=== PATIENT | female | born 1995 | race Caucasian/White ===

== ENCOUNTER 2021-10-28 21:58 | Observation (INO) | payer BC, OTHER ==
--- NOTE | 2021-10-29 00:02 | XR ---
EXAMINATION TYPE: XR KUB DATE OF EXAM: 10/28/2021 COMPARISON: NONE HISTORY: Abdominal pain TECHNIQUE: 2 views upright FINDINGS: Bowel gas pattern is normal. There is no sign of intestinal obstruction or pneumoperitoneum . Fecal pattern is normal. Lung bases are clear. IMPRESSION: Nonacute abdomen.
[2021-10-29] MEDS ORDERED: MORPHINE SULFATE 2 MG/ML SYRINGE IVP STA (01:47)
[2021-10-29] MEDS ORDERED: FAMOTIDINE 20 MG/2 ML VIAL IV STA (01:47)
[2021-10-29] MEDS ORDERED: ONDANSETRON 4 MG/2 ML VIAL IVP STA (01:47)
[2021-10-29] MEDS ORDERED: diphenhydrAMINE 50 MG/ML 1 ML VIAL IVP STA (01:47)
[2021-10-29] MEDS ORDERED: SODIUM CHLORIDE 0.9% 1,000 ML IV STA (01:47)
[2021-10-29] MEDS ORDERED: MORPHINE SULFATE 4 MG/ML SYRINGE IVP STA (02:35)
--- NOTE | 2021-10-29 02:36 | CT ---
EXAMINATION TYPE: CT abdomen pelvis w con DATE OF EXAM: 10/29/2021 COMPARISON: None HISTORY: RIGHT SIDED ABD PAIN CT DLP: 1491.1 mGycm Automated exposure control for dose reduction was used. CONTRAST: Performed with IV Contrast, patient injected with 100 mL of Isovue 300. Images obtained from the diaphragm to the floor the pelvis with IV contrast. Lung bases are clear. There is no pleural effusion. Heart size is normal. There is no pericardial eff usion. Liver spleen stomach pancreas and gallbladder appear normal. The bile ducts are not dilated. There is no adrenal mass. Right kidney shows mild perinephric edema. There is hydronephrosis and imelda yed right pyelogram. There is obstructing 3 mm calculus at the right ureteropelvic junction. The uret ers are not dilated. Bladder distends smoothly. There is no inguinal hernia. Uterus is anteverted. Th ere is no evidence of a pelvic mass. Lumbar vertebrae have normal spacing and alignment. There is no compression fracture. Bony pelvis is intact. The hip joints are intact. Uterus is anteverted. Appendi x is posterior and appears normal. There is no mesenteric edema. There is no ascites or free air. There is no bowel obstruction. IMPRESSION: Obstructing small calculus in the proximal right ureter at the ureteropelvic junction with right-side d hydronephrosis. Normal appendix.
[2021-10-29 02:41] LABS: Basophils # (A) 0.1 k/uL (0-0.2); Basophils % (A) 0 %; Eosinophils % (A) 0 %; HCT 39.2 % (34.0-46.0); HGB 12.9 gm/dL (11.4-16.0); Lymphocytes # (A) 1.7 k/uL (1.0-4.8); Lymphocytes % (A) 9 %; MCH 29.7 pg (25.0-35.0); MCHC 32.8 g/dL (31.0-37.0); MCV 90.4 fL (80.0-100.0); Mean Platelet Volume 8.6; Monocytes # (A) 0.4 k/uL (0-1.0); Monocytes % (A) 2 %; Neutrophils # (A) 16.2 k/uL (1.3-7.7); Neutrophils % (A) 88 %; Platelet Count 230 k/uL (150-450); RBC 4.34 m/uL (3.80-5.40); RDW 12.7 % (11.5-15.5); WBC 18.5 k/uL (3.8-10.6)
[2021-10-29 02:51] LABS: ALT 17 U/L (4-34); African American GFR (CKD) >90 (>60 ml/min/1.73 sqM); Albumin 3.6 g/dL (3.5-5.0); Amylase 61 U/L (30-110); Anion Gap 8 mmol/L; Blood Urea Nitrogen 13 mg/dL (7-17); Calcium 8.2 mg/dL (8.4-10.2); Carbon Dioxide 21 mmol/L (22-30); Chloride 110 mmol/L (98-107); Glucose 102 mg/dL (74-99); Lipase 109 U/L (23-300); Non-African American GFR(CKD) >90 (>60 ml/min/1.73 sqM); Sodium 139 mmol/L (137-145); Total Bilirubin 0.4 mg/dL (0.2-1.3); Total Protein 6.5 g/dL (6.3-8.2)
[2021-10-29 03:13] LABS: Appearance,Urine Clear (Clear); Bilirubin,Urine Negative (Negative); Blood,Urine Negative (Negative); Color,Urine Yellow; Glucose,Urine (UA) Negative (Negative); Ketones,Urine Negative (Negative); Leukocyte Esterase,Urine Negative (Negative); Nitrite,Urine Negative (Negative); PH, Urine 5.5 (5.0-8.0); Protein,Urine Negative (Negative); Specific Gravity,Urine 1.022 (1.001-1.035); Urobilinogen,Urine <2.0 mg/dL (<2.0)
[2021-10-29 03:14] LABS: AST 23 U/L (14-36); Alkaline Phosphatase 58 U/L (38-126)
[2021-10-29] MEDS ORDERED: MORPHINE SULFATE 4 MG/ML SYRINGE IV PRN (04:00)
[2021-10-29] MEDS ORDERED: ONDANSETRON 4 MG/2 ML VIAL IVP PRN (04:00)
[2021-10-29] MEDS ORDERED: SODIUM CHLORIDE 0.9% 1,000 ML IV SCH (04:00)
[2021-10-29] MEDS ORDERED: NALOXONE 0.4 MG/ML 1 ML VIAL IV PRN (04:00)
--- NOTE | 2021-10-29 04:36 | ED ---
General Adult HPI - General Chief complaint: Abdominal Pain Stated complaint: Vomiting Time Seen by Provider: 10/29/21 01:33 Source: patient, RN notes reviewed, old records reviewed Mode of arrival: ambulatory Limitations: no limitations - History of Present Illness Initial comments: Patient is a 26-year-old female with no significant past medical history who presents emergency department over concern for one day history of right-sided abdominal pain, flank. She denies any known history like this previously. Denies . Denies any dysuria, hematuria. Endorses nausea, vomiting. States the pain is severe. It comes and goes. Is uncomfortable to sit or lie down. She is no history of kidney stones but they do run in the family. Patient presents over concern for any intractable abdominal pain with nausea and vomiting. Denies . I evaluated the patient and she was placed in a room. - Related Data Allergies Allergy/AdvReac Type Severity Reaction Status Date / Time No Known Allergies Allergy Verified 10/28/21 22:49 Review of Systems ROS Statement: Those systems with pertinent positive or pertinent negative responses have been documented in the HPI. Review of Systems: CONST: Denies fever EYES: Denies blurry vision ENT: Denies nasal congestion C/V: Denies Chest pain RESP: Denies shortness of breath GI: Endorses abdominal pain, nausea, vomiting : Denies dysuria SKIN: Denies rash. MSK: Denies joint pain. NEURO: Denies headache ROS Other: All systems not noted in ROS Statement are negative. Past Medical History Past Medical History: No Reported History History of Any Multi-Drug Resistant Organisms: None Reported Past Surgical History: No Surgical Hx Reported Past Psychological History: No Psychological Hx Reported Smoking Status: Never smoker Past Alcohol Use History: None Reported Past Drug Use History: None Reported General Exam - General Exam Comments Initial Comments: General: There is a moderate pain. HEAD: Normal with no signs of head trauma. EYES: PERRLA, EOMI, conjunctiva normal, no discharge. ENT: Hearing grossly intact, normal oropharynx. RESPIRATORY: Clear breath sounds bilaterally. No wheezes, rales, or rhonchi. C/V: Regular rate and rhythm. S1 and S2 auscultated, no edema, peripheral pulses 2+ and intact throughout ABD: Abdomen soft, nondistended. Patient is tender over the right flank. No CVA tenderness to percussion. No guarding, rebound tenderness, peritoneal signs. EXT: Normal range of motion, no obvious deformity SKIN: No rashes or lesions observed on exposed skin. NEURO: Alert and oriented 4. Limitations: no limitations Course Vital Signs 10/28/21 10/29/21 22:46 02:13 Temperature 98.3 F 98.1 F Pulse Rate 94 Respiratory 16 Rate Blood Pressure 140/92 O2 Sat by Pulse 99 Oximetry Medical Decision Making - Medical Decision Making Based on patient's presentation and physical exam, I'm concerned for an intra- abdominal process for his current symptoms, including kidney stones. We'll therefore obtain abdominal laboratory studies, test, as well as a CT abdomen and pelvis. She'll be treated with 1 L fluid bolus as well as IV analgesia and antiemetics. Patient was in agreement this plan. Patient's laboratory studies are remarkable for mild leukocytosis of 18.5 which is likely reactive as she has no signs of infection otherwise. Urinalysis is unremarkable. Patient is not . Remainder of the labs are unremarkable. CT abdomen and pelvis revealed a 3 mm nephrolithiasis on the right ureteral pelvic junction with hydronephrosis. On reevaluation, patient is requiring repeat pain medications. She still somewhat nauseous and request repeat antibiotics. I did discuss with her the results of his laboratory studies and imaging. I do believe it is best admitted to the hospital this plan. She was in agreement this plan. Patient will be admitted to observation for pain control and to be evaluated by urology. Dr. Chen of urology was consulted. I spoke with RAJEEV Zamorano of [facility] accepted the admission. Patient was therefore admitted in stable condition to Dr. Carter. - Lab Data Result diagrams: 10/29/21 01:49 10/29/21 01:49 Lab Results 10/29/21 10/29/21 10/29/21 Range/Units 01:49 01:49 01:49 WBC 18.5 H (3.8-10.6) k/uL RBC 4.34 (3.80-5.40) m/uL Hgb 12.9 (11.4-16.0) gm/dL Hct 39.2 (34.0-46.0) % MCV 90.4 (80.0-100.0) fL MCH 29.7 (25.0-35.0) pg MCHC 32.8 (31.0-37.0) g/dL RDW 12.7 (11.5-15.5) % Plt Count 230 (150-450) k/uL MPV 8.6 Neutrophils % 88 % Lymphocytes % 9 % Monocytes % 2 % Eosinophils % 0 % Basophils % 0 % Neutrophils # 16.2 H (1.3-7.7) k/uL Lymphocytes # 1.7 (1.0-4.8) k/uL Monocytes # 0.4 (0-1.0) k/uL Eosinophils # 0.0 (0-0.7) k/uL Basophils # 0.1 (0-0.2) k/uL Sodium 139 (137-145) mmol/L Potassium 4.0 (3.5-5.1) mmol/L Chloride 110 H (98-107) mmol/L Carbon Dioxide 21 L (22-30) mmol/L Anion Gap 8 mmol/L BUN 13 (7-17) mg/dL Creatinine 0.65 (0.52-1.04) mg/dL Est GFR (CKD-EPI)AfAm >90 (>60 ml/min/1.73 sqM) Est GFR (CKD-EPI)NonAf >90 (>60 ml/min/1.73 sqM) Glucose 102 H (74-99) mg/dL Plasma Lactic Acid Andrea (0.7-2.0) mmol/L Calcium 8.2 L (8.4-10.2) mg/dL Total Bilirubin 0.4 (0.2-1.3) mg/dL AST 23 (14-36) U/L ALT 17 (4-34) U/L Alkaline Phosphatase 58 (38-126) U/L Total Protein 6.5 (6.3-8.2) g/dL Albumin 3.6 (3.5-5.0) g/dL Amylase 61 (30-110) U/L Lipase 109 (23-300) U/L Urine Color Yellow Urine Appearance Clear (Clear) Urine pH 5.5 (5.0-8.0) Ur Specific [place] 1.022 (1.001-1.035) Urine Protein Negative (Negative) Urine Glucose (UA) Negative (Negative) Urine Ketones Negative (Negative) Urine Blood Negative (Negative) Urine Nitrite Negative (Negative) Urine Bilirubin Negative (Negative) Urine Urobilinogen <2.0 (<2.0) mg/dL Ur Leukocyte Esterase Negative (Negative) Urine HCG, Qual (Not Detectd) 10/29/21 10/29/21 Range/Units 01:49 01:49 WBC (3.8-10.6) k/uL RBC (3.80-5.40) m/uL Hgb (11.4-16.0) gm/dL Hct (34.0-46.0) % MCV (80.0-100.0) fL MCH (25.0-35.0) pg MCHC (31.0-37.0) g/dL RDW (11.5-15.5) % Plt Count (150-450) k/uL MPV Neutrophils % % Lymphocytes % % Monocytes % % Eosinophils % % Basophils % % Neutrophils # (1.3-7.7) k/uL Lymphocytes # (1.0-4.8) k/uL Monocytes # (0-1.0) k/uL Eosinophils # (0-0.7) k/uL Basophils # (0-0.2) k/uL Sodium (137-145) mmol/L Potassium (3.5-5.1) mmol/L Chloride (98-107) mmol/L Carbon Dioxide (22-30) mmol/L Anion Gap mmol/L BUN (7-17) mg/dL Creatinine (0.52-1.04) mg/dL Est GFR (CKD-EPI)AfAm (>60 ml/min/1.73 sqM) Est GFR (CKD-EPI)NonAf (>60 ml/min/1.73 sqM) Glucose (74-99) mg/dL Plasma Lactic Acid Andrea 1.8 (0.7-2.0) mmol/L Calcium (8.4-10.2) mg/dL Total Bilirubin (0.2-1.3) mg/dL AST (14-36) U/L ALT (4-34) U/L Alkaline Phosphatase (38-126) U/L Total Protein (6.3-8.2) g/dL Albumin (3.5-5.0) g/dL Amylase (30-110) U/L Lipase (23-300) U/L Urine Color Urine Appearance (Clear) Urine pH (5.0-8.0) Ur Specific [place] (1.001-1.035) Urine Protein (Negative) Urine Glucose (UA) (Negative) Urine Ketones (Negative) Urine Blood (Negative) Urine Nitrite (Negative) Urine Bilirubin (Negative) Urine Urobilinogen (<2.0) mg/dL Ur Leukocyte Esterase (Negative) Urine HCG, Qual Not Detected (Not Detectd) Disposition Clinical Impression: Abdominal pain, Nephrolithiasis, Intractable nausea and vomiting Disposition: ADMITTED IP TO THIS [facility] Condition: Stable Referrals: Homer Casas DO [Primary Care Provider] - 1-2 days
[2021-10-29] MEDS: KETOROLAC 30 MG/ML 1 ML VIAL IVP PRN ×2 (04:53→12:21)
--- NOTE | 2021-10-29 07:44 | P.GSCN ---
History of Present Illness Consult date: 10/29/21 History of present illness: 26-year-old female who came to emergency room after several hours of severe right flank pain. She is evaluated in the emergency room identified and a 3 mm proximal ureteral stone on the right. There is a strong family history kidney stones in her mother and brother. This is her first stone. There's been no evidence of infection. Her pain is controlled at this point in time. Other than her family history the no other risk factors for stone formation. Review of Systems All systems: negative - Constitutional Denies fever, Denies weight loss - EENT Eyes: denies blurred vision Ears, nose, mouth and throat: Denies dysphagia - Cardiovascular Denies chest pain, Denies shortness of breath - Respiratory Denies cough, Denies 7 - Gastrointestinal Reports as per HPI - Genitourinary Genitourinary: Denies dysuria, Denies hematuria - Integumentary Denies rash, Denies unusual bruising - Neurological Denies headaches, Denies syncope - Hematologic/Lymphatic Denies easy bleeding, Denies easy bruising Past Medical History Past Medical History: No Reported History History of Any Multi-Drug Resistant Organisms: None Reported Past Surgical History: No Surgical Hx Reported Past Psychological History: No Psychological Hx Reported Smoking Status: Never smoker Past Alcohol Use History: None Reported Past Drug Use History: None Reported Medications and Allergies Allergies Allergy/AdvReac Type Severity Reaction Status Date / Time No Known Allergies Allergy Verified 10/28/21 22:49 Surgical - Exam Vital Signs Temp Pulse Resp BP Pulse Ox 98.3 F 94 16 140/92 99 10/28/21 22:46 10/28/21 22:46 10/28/21 22:46 10/28/21 22:46 10/28/21 22:46 - General well developed, well nourished, no distress - ENT no hearing loss - Neck trachea midline - Respiratory normal expansion, normal respiratory effort - Cardiovascular Rhythm: regular - Abdomen Abdomen: soft, non tender - Neurologic normal sensation - Musculoskeletal normal posture - Psychiatric oriented to time, oriented to person, oriented to place, speech is normal, memory intact Results - Labs 10/29/21 01:49 10/29/21 01:49 Abnormal Lab Results - Last 24 Hours (Table) 10/29/21 10/29/21 Range/Units 01:49 01:49 WBC 18.5 H (3.8-10.6) k/uL Neutrophils # 16.2 H (1.3-7.7) k/uL Chloride 110 H (98-107) mmol/L Carbon Dioxide 21 L (22-30) mmol/L Glucose 102 H (74-99) mg/dL Calcium 8.2 L (8.4-10.2) mg/dL Diabetes panel 10/29/21 Range/Units 01:49 Sodium 139 (137-145) mmol/L Potassium 4.0 (3.5-5.1) mmol/L Chloride 110 H (98-107) mmol/L Carbon Dioxide 21 L (22-30) mmol/L BUN 13 (7-17) mg/dL Creatinine 0.65 (0.52-1.04) mg/dL Glucose 102 H (74-99) mg/dL Calcium 8.2 L (8.4-10.2) mg/dL AST 23 (14-36) U/L ALT 17 (4-34) U/L Alkaline Phosphatase 58 (38-126) U/L Total Protein 6.5 (6.3-8.2) g/dL Albumin 3.6 (3.5-5.0) g/dL Calcium panel 10/29/21 Range/Units 01:49 Calcium 8.2 L (8.4-10.2) mg/dL Albumin 3.6 (3.5-5.0) g/dL Pituitary panel 10/29/21 Range/Units 01:49 Sodium 139 (137-145) mmol/L Potassium 4.0 (3.5-5.1) mmol/L Chloride 110 H (98-107) mmol/L Carbon Dioxide 21 L (22-30) mmol/L BUN 13 (7-17) mg/dL Creatinine 0.65 (0.52-1.04) mg/dL Glucose 102 H (74-99) mg/dL Calcium 8.2 L (8.4-10.2) mg/dL Adrenal panel 10/29/21 Range/Units 01:49 Sodium 139 (137-145) mmol/L Potassium 4.0 (3.5-5.1) mmol/L Chloride 110 H (98-107) mmol/L Carbon Dioxide 21 L (22-30) mmol/L BUN 13 (7-17) mg/dL Creatinine 0.65 (0.52-1.04) mg/dL Glucose 102 H (74-99) mg/dL Calcium 8.2 L (8.4-10.2) mg/dL Total Bilirubin 0.4 (0.2-1.3) mg/dL AST 23 (14-36) U/L ALT 17 (4-34) U/L Alkaline Phosphatase 58 (38-126) U/L Total Protein 6.5 (6.3-8.2) g/dL Albumin 3.6 (3.5-5.0) g/dL - Imaging CT scan - abdomen: report reviewed, image reviewed CT scan - pelvis: report reviewed, image reviewed Assessment and Plan Assessment: Impression: Right Ureteral calculus with colic. Possible bifid collecting system. Recommendations: The patient seems to be comfortable now. I lengthy discussion with the patient and her mother about treatment options. Spontaneous passage with the size of stone at 3 mm is appropriate. She'll be observed in the hospital today. If she remains relatively pain free she can be discharged home for spontaneous passage and follow-up in my office. This is been understood and accepted by the patient and her mother.
--- NOTE | 2021-10-29 11:52 | P.HPIM ---
History of Present Illness 26-year-old pleasant female came in with complaints of colicky pain in the right flank area radiating to the right lower anterior abdomen and to the groin found to have 3 mm renal calculus. Patient has normal UA doesn't have any fever chills does have leukocytosis of 15,000. Patient was evaluated by urology. Patient believes she may have passed stone. Patient last received Toradol was around 5 AM. Her pain is presently 2/10, it was 10/10. REVIEW OF SYSTEMS: CONSTITUTIONAL: No fever, no malaise, no fatigue. HEENT: No recent visual problems or hearing problems. Denied any sore throat. CARDIOVASCULAR: No chest pain, orthopnea, PND, no palpitations, no syncope. PULMONARY: No shortness of breath, no cough, no hemoptysis. GASTROINTESTINAL: No diarrhea, no nausea, no vomiting. NEUROLOGICAL: No headaches, no weakness, no numbness. HEMATOLOGICAL: Denies any bleeding or petechiae. GENITOURINARY: Denies any burning micturition, frequency, or urgency. MUSCULOSKELETAL/RHEUMATOLOGICAL: Denies any joint pain, swelling, or any muscle pain. ENDOCRINE: Denies any polyuria or polydipsia. The rest of the 14-point review of systems is negative. PHYSICAL EXAMINATION: GENERAL: The patient is alert and oriented x3, not in any acute distress. Well developed, well nourished. HEENT: Pupils are round and equally reacting to light. EOMI. No scleral icterus. No conjunctival pallor. Normocephalic, atraumatic. No pharyngeal erythema. No thyromegaly. CARDIOVASCULAR: S1 and S2 present. No murmurs, rubs, or gallops. PULMONARY: Chest is clear to auscultation, no wheezing or crackles. ABDOMEN: Soft, nontender, nondistended, normoactive bowel sounds. No palpable organomegaly. MUSCULOSKELETAL: No joint swelling or deformity. EXTREMITIES: No cyanosis, clubbing, or pedal edema. NEUROLOGICAL: Gross neurological examination did not reveal any focal deficits. SKIN: No rashes. Assessment and plan -Nephrolithiasis: Patient is immune estrone her pain improved. If she doesn't have any pain by the end of the day patient will be discharged today as mentioned above. Patient will follow up follow with urology as an outpatient echo -leukocytosis reactive secondary to nephrolithiasis DVT prophylaxis: Early ambulation Past Medical History Past Medical History: No Reported History Additional Past Medical History / Comment(s): kidney stone, Epilepsy (last seizure at 19 years old.), PCOS History of Any Multi-Drug Resistant Organisms: None Reported Past Surgical History: No Surgical Hx Reported Additional Past Surgical History / Comment(s): wisdom teeth removal Past Anesthesia/Blood Transfusion Reactions: Motion Sickness Additional Past Anesthesia/Blood Transfusion Reaction / Comment(s): claustrophobic Past Psychological History: No Psychological Hx Reported Smoking Status: Never smoker Past Alcohol Use History: None Reported Past Drug Use History: None Reported - Past Family History Mother Family Medical History: No Reported History Father Family Medical History: Hypertension, Myocardial Infarction ([place]) Additional Family Medical History / Comment(s): several MIs, heart cath with stent Medications and Allergies Home Medications Medication Instructions Recorded Confirmed Type Ascorbic Acid [Vitamin C] 1,000 mg PO DAILY 10/29/21 10/29/21 History Cholecalciferol [Vitamin D3 (25 50 mcg PO DAILY 10/29/21 10/29/21 History Mcg = 1000 Iu)] Ibuprofen [Motrin Ib] 200 - 400 mg PO Q8H PRN 10/29/21 10/29/21 History Melatonin [Melatonin Chew] 2.5 mg PO HS PRN 10/29/21 10/29/21 History Multivitamin [Multivitamins Adult 2 tab PO DAILY 10/29/21 10/29/21 History Gummies] Norelgestromin/Ethin.estradiol 1 patch TRANSDERM GONZALES 10/29/21 10/29/21 History [Xulane 150-35 Mcg/Day Patch] Zinc 50 mg PO DAILY 10/29/21 10/29/21 History Allergies Allergy/AdvReac Type Severity Reaction Status Date / Time No Known Allergies Allergy Verified 10/29/21 08:17 Physical Exam Vitals: Vital Signs Temp Pulse Resp BP Pulse Ox 10/29/21 04:00 97.5 F L 69 16 117/69 100 10/29/21 02:13 98.1 F 10/28/21 22:46 98.3 F 94 16 140/92 99 Intake and Output 10/28/21 10/29/21 10/29/21 22:59 06:59 14:59 Other: Weight 104.326 kg 104.326 kg Results CBC & Chem 7: 10/29/21 01:49 10/29/21 01:49 Labs: Abnormal Lab Results - Last 24 Hours (Table) 10/29/21 10/29/21 Range/Units 01:49 01:49 WBC 18.5 H (3.8-10.6) k/uL Neutrophils # 16.2 H (1.3-7.7) k/uL Chloride 110 H (98-107) mmol/L Carbon Dioxide 21 L (22-30) mmol/L Glucose 102 H (74-99) mg/dL Calcium 8.2 L (8.4-10.2) mg/dL Thrombosis Risk Factor Assmnt - Choose All That Apply Any of the Below Risk Factors Present?: No Other Risk Factors: No Other congenital or acquired thrombophilia - If yes, enter type in comment: No Thrombosis Risk Factor Assessment Level: Very Low Risk
--- NOTE | 2021-10-29 11:52 | P.DS ---
Providers Date of admission: 10/29/21 04:00 Attending physician: Sheri Carter Consults: 10/29/21 04:01 Consult Physician Routine Consulting Provider: Nate Chen Consult Reason/Comments: rt 3mm nephrolithiasis, intractable pain N/V Do you want consulting provider notified?: Yes Primary care physician: Homer Casas [facility] Course: Refer to my history of present illness for further details Patient Condition at Discharge: Stable Plan - Discharge Summary New Discharge Prescriptions: No Action Zinc 50 mg PO DAILY Cholecalciferol [Vitamin D3 (25 Mcg = 1000 Iu)] 50 mcg PO DAILY Multivitamin [Multivitamins Adult Gummies] 2 tab PO DAILY Norelgestromin/Ethin.estradiol [Xulane 150-35 Mcg/Day Patch] 1 patch TRANSDERM GONZALES Ascorbic Acid [Vitamin C] 1,000 mg PO DAILY Ibuprofen [Motrin Ib] 200 - 400 mg PO Q8H PRN PRN Reason: Fever And/ Or Pain Melatonin [Melatonin Chew] 2.5 mg PO HS PRN PRN Reason: Insomnia Discharge Medication List Ascorbic Acid [Vitamin C] 1,000 mg PO DAILY 10/29/21 [History] Cholecalciferol [Vitamin D3 (25 Mcg = 1000 Iu)] 50 mcg PO DAILY 10/29/21 [History] Ibuprofen [Motrin Ib] 200 - 400 mg PO Q8H PRN 10/29/21 [History] Melatonin [Melatonin Chew] 2.5 mg PO HS PRN 10/29/21 [History] Multivitamin [Multivitamins Adult Gummies] 2 tab PO DAILY 10/29/21 [History] Norelgestromin/Ethin.estradiol [Xulane 150-35 Mcg/Day Patch] 1 patch TRANSDERM GONZALES 10/29/21 [History] Zinc 50 mg PO DAILY 10/29/21 [History] Follow up Appointment(s)/Referral(s): Homer Casas DO [Primary Care Provider] - 3 Days Nate Chen MD [STAFF PHYSICIAN] - 1 Week Discharge Disposition: HOME SELF-CARE
[2021-10-29 12:44] VITALS: BP 127/72; PULSE 60; RESP 18; TEMP 98.7
== END 2021-10-29 12:49 | disposition home or self-care (01) ==
LOC: EC 21:58 → 1SOBS 10-29 04:00
PROVIDERS: ADMIT Hospitalist; ATTEND Hospitalist
DX: N13.2 Hydronephrosis with renal and ureteral calculous obstruction (principal); G40.909 Epilepsy, unspecified, not intractable, without status epilepticus; E28.2 Polycystic ovarian syndrome; Z20.822 Contact with and (suspected) exposure to COVID-19; Z87.442 Personal history of urinary calculi; Z79.890 Hormone replacement therapy; Z82.49 Family history of ischemic heart disease and other diseases of the circulatory system; Z84.1 Family history of disorders of kidney and ureter
CPT/HCPCS: 96376; 96361; 96374; 96375; 99285; 36415; 80053; 82150; 83605; 83690; 85025; 81003; 81025; 87635; 74018; 74177; G0378; J2270 ×2; J1200; J2405; J1885; Q9967

== ENCOUNTER → 2021-11-12 | Outpatient (CLI) | payer OTHER ==
--- NOTE | 2021-11-12 12:59 | US ---
EXAMINATION TYPE: US pelvic complete DATE OF EXAM: 11/12/2021 COMPARISON: CT 10/29/21 CLINICAL HISTORY: 26-year-old female E28.2 POLYCYSTIC OVARIAN SYNDROME. LLQ pain x 1 month. Patient o n patch control. Periods are regular TECHNIQUE: Transabdominal (TA). Transabdominal sonographic images of the pelvis were acquired. Tra nsvaginal sonographic images were medically necessary to better assess the following anatomy: Date of LMP: 10/12/21 FINDINGS: EXAM MEASUREMENTS: Uterus: 6.8 x 3.2 x 2.1 cm Endometrial Stripe: 0.3 cm Right Ovary: 2.7 x 1.8 x 1.7 cm for a volume of 4.4 mL Left Ovary: 3.0 x 2.2 x 1.8 cm for a volume of 6.2 mL 1. Uterus: Anteverted an otherwise wnl 2. Endometrium: wnl 3. Right Ovary: wnl 4. Left Ovary: wnl 5. Bilateral Adnexa: wnl 6. Posterior cul-de-sac: wnl IMPRESSION: Ovarian volumes as above. No specific abnormality seen on transabdominal scanning.
== END | disposition home or self-care (01) ==
LOC: RADUSWWP 10:16
PROVIDERS: ATTEND Family Medicine
DX: E28.2 Polycystic ovarian syndrome (principal)
CPT/HCPCS: 76856

== ENCOUNTER → 2021-12-03 | Outpatient (CLI) | payer OTHER ==
--- NOTE | 2021-12-03 11:52 | XR ---
Bilateral hips HISTORY: Pain 2 views of each hip submitted Bone mineralization, joint spaces and alignment are maintained within the hips. There is some scleros is of the sacroiliac joints, hypertrophic change. No fracture or dislocation. IMPRESSION: Possible underlying sacroiliitis. Normal hips.
== END | disposition home or self-care (01) ==
LOC: RADXRMAIN 09:13
PROVIDERS: ATTEND Family Medicine
DX: R10.32 Left lower quadrant pain (principal); M25.551 Pain in right hip
CPT/HCPCS: 73521

== ENCOUNTER → 2022-01-21 | Outpatient (CLI) | payer OTHER ==
--- NOTE | 2022-01-28 07:24 | MR ---
EXAMINATION TYPE: MR sacroiliac joints wo/w con DATE OF EXAM: 01/21/2022 COMPARISON: CT abdomen and pelvis October 29, 2021 HISTORY: Low back pain, ankylosing spondylitis CONTRAST: Standard multiplanar, multisequence MRI departmental protocol images were obtained without contrast a nd with 9 mL intravenous Gadavist gadolinium contrast. FINDINGS: Seen better on recent CT the sacroiliac joint spaces are symmetric. STIR weighted images sh ow mild increased signal along the sacral aspect of the bilateral sacroiliac joints slightly greater on the right. There is thickened low T1 and T2 signal corresponding to sclerosis on CT involving the iliac portion of both sacroiliac joints without involvement of the sacral component bilaterally. Find ing is consistent with osteitis condensans ilii. Postcontrast images shows no abnormal enhancement. S lightly suboptimal as fat saturation T1-weighted imaging was not performed. No significant spurring o r bony bridging. No obvious erosive changes. Note is made of symmetric normal-size ovaries with scattered peripheral follicles along with antevert ed uterus. No suspicious bowel dilatation. No pelvic fluid or adenopathy. IMPRESSION: Patient has osteitis condensans ilii. Some marrow edema along the sacral component of bi lateral sacroiliac joints is identified slightly greater on the right. Other findings as noted above.
== END | disposition home or self-care (01) ==
LOC: RADMRIMAIN 08:02
PROVIDERS: ATTEND Internal Medicine Rheumatology
DX: M85.38 Osteitis condensans, other site (principal); N85.4 Malposition of uterus
CPT/HCPCS: 72197; A9585

== ENCOUNTER → 2024-03-20 | Outpatient (CLI) | payer OTHER ==
--- NOTE | 2024-03-20 11:24 | US ---
EXAMINATION TYPE: US thyroid st tissue head/neck DATE OF EXAM: 03/20/2024 COMPARISON: NONE CLINICAL INDICATION: Female, 28 years old with history of E04.1 NONTOXIC SINGLE THYROID NODULE; pt st ates hx of thyroid nodule. Prior at an outside facility GLAND SIZE: Right Lobe: 4.8 x 1.5 x 1.3 cm Overall Parenchyma: homogeneous Left Lobe: 4.5 x 1.4 x 1.4 cm Overall Parenchyma: homogeneous Isthmus Thickness: 0.36 cm NODULES RIGHT: # of nodules measured on right: 0 LEFT: # of nodules measured on left: 0 ISTHMUS: # of nodules measured in the isthmus: 0 Bilateral neck scanned, no evidence of lymphadenopathy. IMPRESSION: Unremarkable thyroid ultrasound without discrete nodule identified.
== END | disposition home or self-care (01) ==
LOC: RADUSWWP 10:30
PROVIDERS: ATTEND Family Medicine
DX: E04.1 Nontoxic single thyroid nodule (principal)
CPT/HCPCS: 76536